=== PATIENT | female | born 1995 | race Caucasian/White ===

== ENCOUNTER 2022-02-04 19:28 | Emergency (ER) | payer MEDICAID ==
[~2022-02-04] VITALS: Ht 160 cm; Wt 94.5 kg
[2022-02-04 19:41] VITALS: TEMP 97.5
[2022-02-04 20:24] LABS: BASO % 0.3 % (0.0-2.0); EOS # 0.2 K/mm3 (0.0-0.7); EOS % 1.7 % (0.0-4.0); GRAN # 8.3 K/mm3 (1.4-6.5); HEMOGLOBIN 11.1 g/dl (12.5-16.0); LYMPH # 2.3 K/mm3 (1.2-3.4); LYMPH % 19.6 % (20.0-51.0); MEAN CELL VOLUME 83 fl (80.0-100.0); MEAN CORPUSCULAR HEMOGLOBIN 27 pg (27-31); MEAN CORPUSCULAR HGB CONC 32 g/dl (33.0-37.0); MONO # 0.8 K/mm3 (0.1-0.6); PLATELET COUNT 225 K/mm3 (130-400); RED BLOOD COUNT 4.16 M/mm3 (4.10-5.30); REDCELL DISTRIBUTION WIDTH-CV 16.9 % (11.5-14.5)
[2022-02-04 20:26] LABS: HEMATOCRIT 34.5 % (37.0-47.0)
[2022-02-04 20:44] LABS: ALBUMIN 2.8 gm/dL (3.5-5.0); BILIRUBIN,TOTAL 0.2 mg/dL (0.2-1.2); CALCIUM 9.3 mg/dL (8.4-10.2); CREATININE, serum 0.51 mg/dL (0.57-1.11); TOTAL PROTEIN 6.6 gm/dL (6.2-8.1)
[2022-02-04 21:04] VITALS: BP 135/78; PULSE 94
== END 2022-02-04 21:04 | disposition home or self-care (01) ==
LOC: COL.ER 19:28
PROVIDERS: Emergency Medicine
DX: O21.9 Vomiting of pregnancy, unspecified (principal); O99.891 Other specified diseases and conditions complicating pregnancy; R53.83 Other fatigue; R53.81 Other malaise; R05.9 Cough, unspecified; Z3A.13 13 weeks gestation of pregnancy; Z20.822 Contact with and (suspected) exposure to COVID-19
CPT/HCPCS: J2765; J7030

== ENCOUNTER 2022-07-26 19:21 | Outpatient (CLI) | payer MEDICAID ==
[~2022-07-26] VITALS: Ht 160 cm; Wt 102.7 kg
[~2022-07-26 19:21] MED LIST: CEPHALEXIN500 M1 PO; PRENATAL TABLET PO; PRILOSEC10 MG PO; TYLENOL 500MG500 MG PO
--- NOTE | 2022-07-26 19:21 | NUR ---
1921 G3 L2 37.6 WEEK GEST TO LR4 WITH C/O DIZZINESS OFF AND ON ALL DAY TODAY. STATES FRIEND ENCOURAGE HER TO COME IN AND GET IT CHECKED OUT. DROVE SELF TO HOSPITAL WITH NO PROBLEMS. EFM ON. FHT BASELINE 145 WITH GOOD VARIABILITY AND ACCELS NOTED. NO CONTRACTIONS. NO LEAKING OR VAG BLEEDING. SVE /-3 WITH NO CHANGE SINCE LAST SVE IN OFFICE. ADM ASSESSMENT COMPLETED. STATES HAS NOT DRANK MUCH WATER TODAY. WATER GIVEN TO DRINK. TURNED TO LL AND B/P 90/55 AND PULSE 98. VERY TALKATIVE WITH NO C/O DIZZINESS AT THIS TIME.
[2022-07-26 19:40] VITALS: BP 133/72; PULSE 102; TEMP 97.6
[2022-07-26 20:05] VITALS: BP 91/54; PULSE 91
--- NOTE | 2022-07-26 20:05 | NUR ---
[address] DR NEWTON IN A FEW MINUTES FOR A REPORT. STATES DOES NOT WANT TO WAIT AROUND BECAUSE HAS TO WORK IN THE MORNING AND HAS AN UPSET DAUGHTER AT HOME THAT NEEDS HER. DR NEWTON NOTIFIED AND ORDER TO DISCHARGE GIVEN. 2020 HOME WITH INSTRUCTIONS.
== END 2022-07-26 20:20 | disposition home or self-care (01) ==
LOC: LDRO 19:21
DX: O99.891 Other specified diseases and conditions complicating pregnancy (principal); R42 Dizziness and giddiness; Z3A.37 37 weeks gestation of pregnancy

== ENCOUNTER 2022-07-31 04:05 | Inpatient (IN) | payer MEDICAID ==
[~2022-07-31] VITALS: Ht 160 cm; Wt 103.2 kg
[2022-08-03] VITALS (35 sets, daily range): BP systolic 99–143; BP diastolic 47–89; PULSE 72–130; TEMP 97.2–97.8
--- NOTE | 2022-08-03 06:45 | NUR ---
PT ABMULATORY TO UNIT FOR INDUCTION OF LABOR. PT DENIES BLEEDING, DENIES CONTACTIONS, DENIES DECREASED MOVEMENT, DENIES LEAKING OF FLUID. EFM AND TOCO APPLIED AND VITAL SIGNS OBTAINED. CONSENT FORMS SIGNED AND ALL QUESTIONS ANSWERED. WILL CONTINUE WITH PLAN OF CARE.
[2022-08-03] MEDS ORDERED: PROFE180 MG PO (06:51)
[2022-08-03 08:14] LABS: BASO % 0.2 % (0.0-2.0); EOS # 0.1 K/mm3 (0.0-0.7); EOS % 1.5 % (0.0-4.0); GRAN # 6.4 K/mm3 (1.4-6.5); GRAN % 70.2 % (42.2-75.2); HEMATOCRIT 32.1 % (37.0-47.0); HEMOGLOBIN 10.2 g/dl (12.5-16.0); LYMPH # 1.9 K/mm3 (1.2-3.4); LYMPH % 20.9 % (20.0-51.0); MEAN CELL VOLUME 85 fl (80.0-100.0); MEAN CORPUSCULAR HEMOGLOBIN 27 pg (27-31); MEAN CORPUSCULAR HGB CONC 32 g/dl (33.0-37.0); MEAN PLATELET VOLUME 11.4 fl (7.4-10.4); MONO # 0.6 K/mm3 (0.1-0.6); MONO % 6.5 % (1.7-9.3); PLATELET COUNT 199 K/mm3 (130-400); RED BLOOD COUNT 3.76 M/mm3 (4.10-5.30); REDCELL DISTRIBUTION WIDTH-CV 16.1 % (11.5-14.5)
--- NOTE | 2022-08-03 08:15 | NUR ---
1516-0435 DIFFICULTY TRACING HEART TONES EXTERNALLY DUE TO MATERNAL HABITUS. RN AT BEDSIDE PALPATING AND REPOSITIONING. 0831-DR. ROLES AT BEDSIDE PLACING FSE.
--- NOTE | 2022-08-03 08:30 | NUR ---
ROLES AT BEDSIDE. SVE , AROM AT 0831. CLEAR FLUID NOTED. FSE PLACED DUE TO DIFFICULTY TRACING. ALL QUESTIONS ANSWERED. WILL CONTINUE WITH PLAN OF CARE.
--- NOTE | 2022-08-03 10:42 | NUR ---
PT SITTING UPRIGHT ON EDGE OF BED FOR EPIDURAL PLACEMENT. SERVICING REP AT BEDSIDE. TOCO TRACING INTERMITTENLY DUE TO MATERNAL POSITIONING. PULSE OX APPLIED TO TRACE MATERNAL HR. BLOOD PRESSURE CYCLING Q5 MINS. TEST DOSE AT 1042. MATERNAL VITAL SIGNS WNL. 1022- PT REPOSITIONED TO LL SIDE AND IV FLUID BOLUS ADMINISTERED FOR VARIABLE IN HEART. 1036- PT HAVING RECURRENT VARIABLES. TOCO NOT TRACING CONTRACTIONS WELL DUE TO MATERNAL POSITIONING FOR EPIDURAL. PITOCIN DECREASED TO 9MU. 1040- PITOCIN OFF. 1050- CALLED DR. PANDA 1055- CALL BACK TO DR. PANDA. SVE /-2. 1100-DR. PANDA AT BEDSIDE. SVE /-2. VARIABLES RESOLVING, MODERATE VARIABLE IN BETWEEN.
--- NOTE | 2022-08-03 11:08 | NUR ---
PITOCIN RESTARTED AT 4MU PER DR. BANKS
--- NOTE | 2022-08-03 13:47 | NUR ---
1345- DR. PANDA AT BEDSIDE. PT IS COMPLETE AND FEELS THE URGE TO PUSH 1347- SPONTANTEOUS VAGINAL DELIVERY OF A VIABLE MALE , NUCHAL X1 AND ONE TRUE KNOT NOTED. PLACED ON THE MOTHER'S ABDOMEN AND CARE OF INFANT TRANSFERRED TO NURSERY RN. CORD CLAMPING WAS DELAYED PER MOTHER'S REQUEST AND THEN FATHER CUT THE UMBILICAL CORD. SPONTANEOUS DELIVERY OF PLACENTA AT 1352. RIGHT VAGNIAL TEAR REPAIRED PER DR. PANDA. FUNDUS IS FIRM AND BLEEDING IS WNL. PT WAS REPOSITONED IN BED AND CLEAN PAD PLACED UNDER MOTHER. VITAL SIGNS WNL. WILL CONTINUE WITH PLAN OF CARE.
--- NOTE | 2022-08-03 17:00 | NUR ---
PT UP TO BATHROOM TO BE CLEANED AND THEN PT TRANSFERRED TO ROOM VIA NICHOLAS GRESHAM. PT NOT COMPLAINING OF DIZZINES OR LIGHTHEADEDNESS AT THIS TIME. ORIENTED TO ROOM. ALL QUESTIONS ANSWERED.
[2022-08-04 00:45] VITALS: BP 125/78; PULSE 81; TEMP 97.5
[2022-08-04 08:07] VITALS: BP 136/86; PULSE 76; TEMP 97.2
--- NOTE | 2022-08-04 09:19 | NUR ---
Initial visit; Parents thanked Division Supervisor for looking in on them and offering congratulations and God's blessings for the of their son. Division Supervisor thanked them for choosing [facility]. Patient's sister present also.
--- NOTE | 2022-08-04 09:26 | NUR ---
CHACHO met with patient at bedside. SADIE/chely Macdonald Raponi at bedside along with the patients sister. SW obtained consent to talk with the patient in front of family. Patient is and has 2 other children that she shares with her ex . Together they co-parent well and currently rotate custody every other weekend.He is currently watching their two children but is planning on coming up with the kids later today. Patient states that she and Torres are planning on getting within the next week as he is getting ready to deploy to [place]. She has limited supports after Torres leaves. Patient verbalizes that she has all basic care needs for baby. 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 Torres verbalizes that he is willing to financially support the patient while he is gone. She is established with [facility] and has applied for food stamps. She is planning on breast feeding. CHACHO addressed the patients MH, which she states that she has gone to [facility] in the past, but is not currently seeking treatment. Local MH agencies discussed with the patient along with [facility] information provided. Patient is also provided the [facility] guide. No other needs or concerns from RN or MD.
[2022-08-04 12:30] VITALS: BP 121/62; PULSE 81
[2022-08-04 16:49] VITALS: BP 120/77; PULSE 83
[2022-08-04 19:59] VITALS: BP 127/70; PULSE 85; TEMP 97.9
[2022-08-05] MEDS ORDERED: MOTRIN 800800 MG/TAB PO (08:24)
[2022-08-05 09:50] VITALS: BP 147/83; PULSE 99; TEMP 97.6
== END 2022-08-05 16:30 | disposition home or self-care (01) | DRG 807 ==
LOC: OB 08-03 04:05 → LDR 08-03 06:22 → OB 08-03 12:17
PROVIDERS: ADMIT Obstetrics & Gynecology
PROC: 10E0XZZ Delivery of Products of Conception, External Approach (ICD-10-PCS; principal; 2022-08-03)
PROC: 0HQ9XZZ Repair Perineum Skin, External Approach (ICD-10-PCS; 2022-08-03)
PROC: 10907ZC Drainage of Amniotic Fluid, Therapeutic from Products of Conception, Via Natural or Artificial Opening (ICD-10-PCS; 2022-08-03)
PROC: 3E033VJ Introduction of Other Hormone into Peripheral Vein, Percutaneous Approach (ICD-10-PCS; 2022-08-03)
DX: O99.344 Other mental disorders complicating childbirth (principal); Z37.0 Single live birth; F41.9 Anxiety disorder, unspecified; F32.A Depression, unspecified; O99.214 Obesity complicating childbirth; O70.0 First degree perineal laceration during delivery; O69.81X0 Labor and delivery complicated by cord around neck, without compression, not applicable or unspecified; O69.2XX0 Labor and delivery complicated by other cord entanglement, with compression, not applicable or unspecified; Z3A.39 39 weeks gestation of pregnancy
CPT/HCPCS: J2590; J7120